=== PATIENT | female | born 2000 | race Caucasian/White ===

== ENCOUNTER 2018-01-05 19:23 | Emergency (ER) | payer BC ==
--- NOTE | 2018-01-05 21:24 | ED ---
Respiratory - HPI Summary HPI Summary: 17 yr old female with the complaint of cough, runny nose, chills, myalgias. No other complaints, onset a couple of days ago. Influenza is on campus at [employer]. No other complaints. - History of Current Complaint Chief Complaint: UCGeneralIllness Stated Complaint: HEADACHE,COUGH,RUNNY NOSE Time Seen by Provider: 01/05/18 21:10 Pain Intensity: 4 - Allergy/Home Medications Allergies/Adverse Reactions: Allergies Allergy/AdvReac Type Severity Reaction Status Date / Time No Known Allergies Allergy Verified 01/05/18 20:48 Home Medications: Home Medications NK [No Home Medications Reported] 01/05/18 [History Confirmed 01/05/18] PMH/Surg Hx/FS Hx/Imm Hx - Surgical History Surgery Procedure, Year, and Place: LEFT ACL SX--2017 Infectious Disease History: No Infectious Disease History: Denies: Traveled Outside the [place] in Last 30 Days - Family History Known Family History: Positive: None - Social History Lives: With Family Alcohol Use: None Substance Use Type: Reports: None Smoking Status (MU): Never Smoked Tobacco Review of Systems Positive: Chills Positive: Nasal Discharge Positive: Cough All Other Systems Reviewed And Are Negative: Yes Physical Exam - Summary Physical Exam Summary: Non toxic, smiling and in no distress. Triage Information Reviewed: Yes Vital Signs On Initial Exam: Initial Vitals Temp Pulse Resp BP Pulse Ox 98.1 F 75 20 114/53 100 01/05/18 20:49 01/05/18 20:49 01/05/18 20:49 01/05/18 20:49 01/05/18 20:49 Vital Signs Reviewed: Yes Appearance: Positive: Well-Appearing, No Pain Distress Skin: Positive: Warm, Skin Color Reflects Adequate Perfusion Head/Face: Positive: Normal Head/Face Inspection Eyes: Positive: EOMI ENT: Positive: Pharynx normal, Nasal congestion, TMs normal Neck: Positive: Supple, Nontender Respiratory/Lung Sounds: Positive: Clear to Auscultation, Breath Sounds Present Cardiovascular: Positive: RRR. Negative: Murmur Abdomen Description: Positive: Nontender Musculoskeletal: Positive: Strength/ROM Intact Neurological: Positive: Sensory/Motor Intact, Alert, Oriented to Person Place, Time, CN Intact II-III Psychiatric: Positive: Normal - Meera Coma Scale Best Eye Response: 4 - Spontaneous Best Motor Response: 6 - Obeys Commands Best Verbal Response: 5 - Oriented Coma Scale Total: 15 Diagnostics - Vital Signs Vital Signs Temp Pulse Resp BP Pulse Ox 01/05/18 20:49 98.1 F 75 20 114/53 100 - Laboratory Lab Statement: Any lab studies that have been ordered have been reviewed, and results considered in the medical decision making process. Disposition - Course Course Of Treatment: 17 yr old with runny nose, cough and cold symptoms. Influenza is negative. DC home URI - Diagnoses Provider Diagnoses: URI (upper respiratory infection) Discharge - Discharge Plan Condition: Good Disposition: HOME Patient Education Materials: Upper Respiratory Infection (ED) Referrals: No Primary Care Phys,NOPCP [Primary Care Provider] - [facility] [Outside]
== END 2018-01-05 21:55 | disposition home or self-care (01) ==
LOC: UCCORT 19:23
DX: J06.9 Acute upper respiratory infection, unspecified (principal); Z20.828 Contact with and (suspected) exposure to other viral communicable diseases
CPT/HCPCS: 87502; 99201; G0463

== ENCOUNTER 2018-10-31 12:12 | Emergency (ER) | payer BC ==
--- NOTE | 2018-10-31 13:07 | UC ---
Throat Pain/Nasal Dionicio HPI - HPI Summary HPI Summary: 17 y/o female presents to the urgent care c/o sore throat, nasal congestion and fever since yesterday. Pt reports pain w/ swallowing is 4/10. He has fever of 102F and he took Advil PO to alleviate symptoms. Pt is a student at [employer]. Pt denies cough, SOB, chest pain, abdominal pain, N/V/D. Pt is UTD w/ all vaccines for her age. - History of Current Complaint Stated Complaint: FEVER, SORE THROAT, CONGESTION Time Seen by Provider: 10/31/18 13:06 Hx Obtained From: Patient Hx Last Menstrual Period: 12/05/17 ?: No Onset/Duration: Gradual Onset, Lasting Days - 3 days, Still Present, Worse Since - today Severity: Moderate Pain Intensity: 5 Pain Scale Used: 0-10 Numeric Cough: Nonproductive Associated Signs & Symptoms: Positive: Dysphagia, Fever. Negative: Wheezing, Sinus Discomfort, Nasal Discharge - Epiglottits Risk Factors Epiglottis Risk Factors: Negative - Allergies/Home Medications Allergies/Adverse Reactions: Allergies Allergy/AdvReac Type Severity Reaction Status Date / Time No Known Allergies Allergy Verified 10/31/18 13:12 Home Medications: Home Medications Guaifenesin/Dextromethorphan [Mucinex Dm ER 1,200-60 mg Tab] 1 tab PO Q12H PRN 10/31/18 [History Confirmed 10/31/18] Ibuprofen TAB* [Advil TAB*] 400 mg PO Q6H PRN 10/31/18 [History Confirmed ] PMH/Surg Hx/FS Hx/Imm Hx Previously Healthy: Yes - Pt denies PMHX - Surgical History Surgical History: Yes Surgery Procedure, Year, and Place: LEFT ACL SX--2017 - Family History Known Family History: Positive: None - Pt denies FMHX - Social History Occupation: Student Lives: With Family Alcohol Use: None Substance Use Type: None Smoking Status (MU): Never Smoked Tobacco - Immunization History Vaccination Up to Date: Yes Review of Systems All Other Systems Reviewed And Are Negative: Yes Constitutional: Positive: Fever, Chills, Fatigue Skin: Positive: Negative Eyes: Positive: Negative ENT: Positive: Sore Throat Respiratory: Positive: Cough - dry Cardiovascular: Positive: Negative Gastrointestinal: Positive: Negative Genitourinary: Positive: Negative Motor: Positive: Negative Neurovascular: Positive: Negative Musculoskeletal: Positive: Negative Neurological: Positive: Headache Psychological: Positive: Negative Is Patient Immunocompromised?: No Physical Exam - Summary Physical Exam Summary: VITAL SIGNS: Reviewed. GENERAL: Patient is a well developed and nourished female adolescent who is sitting comfortable in the examining table. Patient is not in any acute respiratory distress. HEAD AND FACE: No signs of trauma. No ecchymosis, hematomas or skull depressions. No sinus tenderness. EYES: PERRLA, EOMI x 2, No injected conjunctiva, no nystagmus. No photophobia. EARS: Hearing grossly intact. Ear canals and tympanic membranes are within normal limits. MOUTH: Positive pharynx with erythema, exudates, palatal petechiae. B/L tonsillar enlargement with exudate. Uvula in midline. NECK: Supple, trachea is midline, Positive anterior cervical lymphadenopathy, no JVD, no carotid bruit, no c-spine tenderness, neck with full ROM. No meningeal signs, no Kernig's or brudzinskis signs. CHEST: Symmetric, no tenderness at palpation LUNGS: Clear to auscultation bilaterally. No wheezing or crackles. CVS: Regular rate and rhythm, S1 and S2 present, no murmurs or gallops appreciated. ABDOMEN: Soft, non-tender. No signs of distention. No rebound no guarding, and no masses palpated. Bowel sounds are normal. EXTREMITIES: FROM in all major joints, no edema, no cyanosis or clubbing. NEURO: Alert and oriented x 3. No acute neurological deficits. Speech is normal and follows commands. SKIN: Dry and warm Triage Information Reviewed: Yes Throat Pain/Nasal Course/Dx - Course Course Of Treatment: 17 y/o female presents to the urgent care c/o sore throat, nasal congestion and fever since yesterday. Pt reports pain w/ swallowing is 4/ 10. He has fever of 102F and he took Advil PO to alleviate symptoms. Pt is a student at [employer]. Pt denies cough, SOB, chest pain, abdominal pain, N/V/D. Pt is UTD w/ all vaccines for her age. Hx obtained. Rapid strep ordered: result : positive. Strep pharyngitis. Rx Amoxicillin PO and Ibuprofen PO for pain and swelling. PT Advised on hand washing to avoid spreading. Also advised to rest, eat well and avoid strenuous exercise. If symptoms do not improve or worsen advised to return to the urgent care or f/u with her PCP for further evaluation and treatment. PT understood and agreed - Differential Dx/Diagnosis Differential Diagnosis/HQI/PQRI: Laryngitis, Mononucleosis, Otitis Media, Pharyngitis, Sinusitis, Tonsillitis Provider Diagnosis: Strep pharyngitis Discharge - Sign-Out/Discharge Documenting (check all that apply): Patient Departure - D/C home All imaging exams completed and their final reports reviewed: No Studies - Discharge Plan Condition: Stable Disposition: HOME Prescriptions: Amoxicillin PO (*) [Amoxicillin 500 MG CAP*] 500 mg PO Q12H #20 cap Patient Education Materials: Strep Throat (ED) Forms: *School Release Referrals: [facility] [Outside] - 3 Days Additional Instructions: 1- Please take the full course of the antibiotic to avoid resistance. 2-Please continue taking Advil PO q6-8hrs prn as instructed after meals to alleviate pain and swelling. Increase fluid intake, eat well, rest and avoid strenuous exercise 3-If symptoms do not improve or worsen please return to the urgent care or f/u with your PCP in 3 days for further evaluation and treatment. - Billing Disposition and Condition Condition: STABLE Disposition: Home
[2018-10-31 13:17] VITALS: BP 105/73
== END 2018-10-31 13:46 | disposition home or self-care (01) ==
LOC: UCCORT 12:12
DX: J02.0 Streptococcal pharyngitis (principal); B95.0 Streptococcus, group A, as the cause of diseases classified elsewhere
CPT/HCPCS: 87651; 99212; G0463